=== PATIENT | female | born 1995 | race Caucasian/White ===

== ENCOUNTER → 2017-04-26 | Outpatient (CLI) | payer BC ==
--- NOTE | 2017-04-26 09:14 | MR ---
EXAMINATION TYPE: MR brain wo/w con DATE OF EXAM: 04/26/2017 COMPARISON: NONE HISTORY: Swollen optic nerves per patient. Disc edema or abnormal ophthalmology exam per order. TECHNIQUE: Multiplanar, multisequence images of the brain and brainstem is performed without and with IV contras t, utilizing 14 mL intravenous MultiHance . Fast protocol utilized due to underlying claustrophobia. FINDINGS: Diffusion weighted images demonstrate no evidence of a recent infarct or other diffusion ab normality. There is no extra-axial fluid collection or significant white matter signal abnormality. The ventricular system and cisternal spaces are normal in size and appearance. The brain volume is age appropriate. Midline structures demonstrate normal morphology. The craniocervical junction appears within normal limits. Post contrast images demonstrate no abnormal enhancement. The dural venous sinuses appear pa tent. The visualized paranasal sinuses are clear. The globes are intact bilaterally. No suspicious en hancement is seen. IMPRESSION: Unremarkable study.
== END | disposition home or self-care (01) ==
LOC: RADMRIMAIN 08:05
PROVIDERS: ATTEND Ophthalmology
DX: H47.11 Papilledema associated with increased intracranial pressure (principal)
CPT/HCPCS: 70553; A9577

== ENCOUNTER 2020-10-19 16:56 | Emergency (ER) | payer BC ==
[2020-10-19 17:23] VITALS: RESP 18; TEMP 98
--- NOTE | 2020-10-19 17:43 | ED ---
General Adult HPI - General Chief complaint: Psychiatric Symptoms Stated complaint: Mental health Time Seen by Provider: 10/19/20 17:25 Source: patient Mode of arrival: ambulatory Limitations: no limitations - History of Present Illness Initial comments: Dictation was produced using [employer] dictation software. please excuse any grammatical, word or spelling errors. This patient was cared for during a federal and state declared state of emergency secondary to Covid 19 Chief Complaint: 24 yo female presents with suicidal ideation History of Present Illness: Eugenia is a 24-year-old female she presents to the emergency Department for suicidal ideation. Patient's been depressed for the last couple days. She states she is depressed because of the ongoing political strife. She does not have a specific plan. She denies any attempt. She denies any psychiatric history or ever been admitted to a psychiatric facility before. Patient is coming in by her mother. The ROS documented in this emergency department record has been reviewed and confirmed by me. Those systems with pertinent positive or negative responses have been documented in the HPI. All other systems are other negative and/or noncontributory. PHYSICAL EXAM: General Impression: Alert and oriented x3, not in acute distress HEENT: Normocephalic atraumatic, extra-ocular movements intact, pupils equal and reactive to light bilaterally, mucous membranes moist. Cardiovascular: Heart regular rate and rhythm Chest: Able to complete full sentences, no retractions, no tachypnea Abdomen: abdomen soft, non-tender, non-distended, no organomegaly Musculoskeletal: Pulses present and equal in all extremities, no peripheral edema Motor: no focal deficits noted Neurological: CN II-XII grossly intact, no focal motor or sensory deficits noted Skin: Intact with no visualized rashes Psych: Depressed mood ED course: 24-year-old female presents with suicidal ideation. Vital signs upon arrival shows heart rate of 130, rest of vital signs within acceptable limits. Patient denies any medical complaints. Physical examination is benign. Repeat vitals are improved. EPS evaluate patient and recommended discharge. Discharge planning was discussed with patient. Patient is agreeable with plan. Mother is also agreeable. Patient discharge. - Related Data Allergies Allergy/AdvReac Type Severity Reaction Status Date / Time No Known Allergies Allergy Verified 10/19/20 17:16 Review of Systems ROS Statement: Those systems with pertinent positive or pertinent negative responses have been documented in the HPI. ROS Other: All systems not noted in ROS Statement are negative. Past Medical History Past Medical History: No Reported History Past Surgical History: No Surgical Hx Reported Past Psychological History: Depression General Exam Limitations: no limitations Course Vital Signs 10/19/20 17:16 Temperature 98 F Pulse Rate 130 H Respiratory 18 Rate Blood Pressure 133/92 O2 Sat by Pulse 96 Oximetry Medical Decision Making - Lab Data Lab Results 10/19/20 Range/Units 17:48 Urine HCG, Qual Not Detected (Not Detectd) Disposition Clinical Impression: Suicidal ideation Disposition: HOME SELF-CARE Condition: Good Instructions (If sedation given, give patient instructions): Help Prevent Suicide (ED) Is patient prescribed a controlled substance at d/c from ED?: No Referrals: None,Stated [Primary Care Provider] - 1-2 days Time of Disposition: 18:26
[2020-10-19 19:00] VITALS: BP 146/100; PULSE 123
== END 2020-10-19 19:08 | disposition home or self-care (01) ==
LOC: EC 16:56
DX: R45.851 Suicidal ideations (principal)
CPT/HCPCS: 81025; 82075; 99285